=== PATIENT | male | born 1980 | race Caucasian/White ===

== ENCOUNTER 2017-07-05 16:29 | Emergency (ER) | payer OTHER ==
[2017-07-05] MEDS ORDERED: Lactated Ringers 1,000 ML IV ONE ×4 (17:04→17:48)
[2017-07-05] MEDS ORDERED: Phenergan 25 MG INJ IM ONE (17:16)
[2017-07-05 17:27] LABS: VBG BASE EXCESS -3.7 (-2.0-2.0); VBG CARBOXYHEMOGLOBIN 3.4 % T HGB (0.0-6.9); VBG HCO3- 21.5 meq/L (22-28); VBG HEMOGLOBIN 17.2; VBG O2 SATURATION 84.7 (95-100); VBG POTASSIUM 2.9 (3.5-5.1); VBG pH 7.35 (7.32-7.42)
[2017-07-05 17:29] LABS: BASOPHIL % 0.2 % (0.0-0.4); Basophil (Absolute #) 0.02 (0-0.4); Eosinophil % 2.2 % (0.00-5.0); Eosinophil (Absolute #) 0.22 (0-0.5); Granulocyte Absolute (ANC) 7.37 (1.4-6.9); Granulocytes % 73.1 % (36.0-66.0); Hemoglobin 17.6 gm/dl (12.5-18.0); Lymphocytes % 15.9 % (24.0-44.0); Mean Cell Volume 86.5 fl (78-100); Mean Corpuscular Hemoglobin 31.7 pg (26-32); Mean Corpuscular Hgb Concent. 36.7 g/dl (32-36); Mean Platelet Volume 10.1 fl (6-9.5); Monocyte (Absolute #) 0.87 (0.0-1.3); Monocytes % 8.6 % (0.0-12.0); Platelet Count 269 K/mm3 (150-450); Red Blood Count 5.55 M/mm3 (4.1-5.6); Red Cell Distribution Width 12.5 % (11.5-14.0); White Blood Count 10.1 K/mm3 (4.0-10.5)
[2017-07-05] MEDS ORDERED: Phenergan 25 MG INJ ONE (17:29)
[2017-07-05] MEDS ORDERED: POTASSIUM CHLORIDE 20 mEq IN WATER 100ML 100 ML IV ONE ×2 (17:44→17:48)
--- NOTE | 2017-07-05 17:44 | ERPHSYRPT ---
- History of Present Illness Time Seen by Provider: 07/05/17 17:09 Historian: patient Patient Subjective Stated Complaint: pt reports eating a poisonous mushroom a week ago-2 days later began having diarrhea-states he has had explosive violent diarrhea x 1 week-denies vomiting but reports episodes of nausea-reports pain to mid abd Triage Nursing Assessment: pt pink warm and [id number]-fluz easy and nonlabored upon arrival-bowel sounds hyperaactive-abd soft and nontender to palp-reports increased gas Physician History: CC: diarrhea Hx: 37 y/o patient with diarrhea for 5 days, copious, nonbloody up to 14 times a day. He has decreased urination. He states he ate a mushroom found in town 7 days ago and looked it up and thinks it is a poisonous false son mushroom. No one else is ill. No vomiting. No fever or chills. Abdominal cramping. No prior abd surgeries. Diarrhea is severe. Timing/Duration: day(s) (5) Abdominal Pain Onset Location: generalized abdomen Allergies/Adverse Reactions: Penicillins Allergy (Verified 07/05/17 16:42) Home Medications: No Reportable Medications [No Reported Medications] 07/05/17 [History] Hx Tetanus, Diphtheria Vaccination/Date Given: No Hx Influenza Vaccination/Date Given: No Hx Pneumococcal Vaccination/Date Given: No Immunizations Up to Date: Yes - Review of Systems Constitutional: Fatigue, Malaise, Weakness, No Fever, No Chills Eyes: No Symptoms, No Vision Changes Ears, Nose, & Throat: No Symptoms Respiratory: No Cough, No Dyspnea Cardiac: No Chest Pain, No Syncope Abdominal/Gastrointestinal: Abdominal Pain (cramping), Nausea, Diarrhea (copious ), No Vomiting Genitourinary Symptoms: No Dysuria, No Hematuria Skin: No Rash Neurological: No Focal Weakness, No Headache All Other Systems: Reviewed and Negative - Past Medical History Pertinent Past Medical History: Yes Neurological History: No Pertinent History ENT History: No Pertinent History Cardiac History: No Pertinent History Respiratory History: No Pertinent History Endocrine Medical History: No Pertinent History Musculoskeletal History: No Pertinent History GI Medical History: No Pertinent History History: No Pertinent History Psycho-Social History: Anxiety, Depression Male Reproductive Disorders: No Pertinent History - Past Surgical History Past Surgical History: No - Social History Smoking Status: Current every day smoker How long have you smoked: 15 Exposure to second hand smoke: Yes Drug Use: marijuana, methamphetamines, narcotics Patient Lives Alone: No - Nursing Vital Signs Nursing Vital Signs: Initial Vital Signs Temperature 97.6 F 07/05/17 16:34 Pulse Rate 75 07/05/17 16:34 Respiratory Rate 18 07/05/17 16:34 Blood Pressure 147/99 07/05/17 16:34 O2 Sat by Pulse Oximetry 97 07/05/17 16:34 Pain Scale Pain Intensity 7 - Physical Exam General Appearance: alert, thin Eye Exam: PERRL/EOMI Ears, Nose, Throat Exam: dry mucous membranes Neck Exam: normal inspection, non-tender, supple Respiratory Exam: normal breath sounds Cardiovascular Exam: regular rate/rhythm, No murmur, No tachycardia Gastrointestinal/Abdomen Exam: soft, No tenderness, No distention, No mass, No guarding Male Genitalia Exam: normal genitalia, No testicular tenderness Back Exam: normal inspection, normal range of motion Extremity Exam: normal inspection, normal range of motion Neurologic Exam: alert, oriented x 3, cooperative, 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 QTc normal 431.) - Radiology Exams AAS X-ray Interpretation: Reviewed by me (nonspecific bowel gas pattern, no obstrution) Ordered Tests: Active Orders 24 hr Category Date Time Status Clean Catch Urine Specimen STAT Care 07/05/17 17:16 Active EKG-ER Only STAT Care 07/05/17 17:16 Active IV Insertion STAT Care 07/05/17 17:16 Active OBSTR/ACUTE ABDOMEN SERIES Stat Exams 07/05/17 17:17 Ordered CBC W DIFF Stat Lab 07/05/17 17:00 Completed CMP Stat Lab 07/05/17 17:00 Completed LIPASE Stat Lab 07/05/17 17:00 Completed Lactic Acid Stat Lab 07/05/17 17:16 Results MAGNESIUM Stat Lab 07/05/17 17:00 Completed PROTIME WITH INR Stat Lab 07/05/17 17:00 Received PTT Stat Lab 07/05/17 17:00 Received UA W/RFX UR CULTURE Stat Lab 07/05/17 17:55 Completed Urine Triage Profile Stat Lab 07/05/17 17:55 Completed VENOUS BLOOD GAS Stat Lab 07/05/17 17:17 Completed Medication Summary Generic Name Dose Route Start Last Admin Trade Name Freq PRN Reason Stop Dose Admin Lactated Ringer's 1,000 mls @ 999 mls/hr 07/05/17 17:45 07/05/17 17:53 Lactated Ringers IV 07/05/17 18:45 999 mls/hr .Q1H1M ONE Administration Magnesium Sulfate/Dextrose 100 mls @ 100 mls/hr 07/05/17 17:45 07/05/17 17:52 Magnesium 1 Gm / 100 Ml D5w IV 07/05/17 19:44 100 mls/hr Q1H JANETTE Administration Discontinued Medications Generic Name Dose Route Start Last Admin Trade Name Freq PRN Reason Stop Dose Admin Lactated Ringer's 1,000 mls @ 999 mls/hr 07/05/17 17:07 07/05/17 17:08 Lactated Ringers IV 07/05/17 18:07 999 mls/hr .Q1H1M ONE Administration Lactated Ringer's Confirm 07/05/17 17:04 Lactated Ringers Administered 07/05/17 17:05 Dose 1,000 mls @ ud IV .STK-MED ONE Potassium Chloride 100 mls @ 50 mls/hr 07/05/17 17:44 07/05/17 17:52 Potassium Chloride 20 Meq In Water 100ml IV 07/05/17 19:43 50 mls/hr STAT ONE Administration Lactated Ringer's Confirm 07/05/17 17:48 Lactated Ringers Administered 07/05/17 17:49 Dose 1,000 mls @ ud IV .STK-MED ONE Potassium Chloride Confirm 07/05/17 17:48 Potassium Chloride 20 Meq In Water 100ml Administered 07/05/17 17:49 Dose 100 mls @ ud IV .STK-MED ONE Potassium Bicarbonate 50 meq 07/05/17 18:08 07/05/17 18:16 K-Lyte 25 Meq PO 07/05/17 18:09 50 meq STAT ONE Administration Potassium Bicarbonate Confirm 07/05/17 18:10 K-Lyte 25 Meq Administered 07/05/17 18:11 Dose 50 meq .ROUTE .STK-MED ONE Promethazine HCl 12.5 mg 07/05/17 17:16 07/05/17 17:33 Phenergan 25 Mg Inj IM 07/05/17 17:17 12.5 mg STAT ONE Administration Promethazine HCl Confirm 07/05/17 17:29 Phenergan 25 Mg Inj Administered 07/05/17 17:30 Dose 25 mg .ROUTE .STK-MED ONE Lab/Rad Data: Laboratory Result Diagrams 07/05/17 17:00 07/05/17 17:00 Laboratory Results 07/05/17 07/05/17 07/05/17 Range/Units 17:55 17:55 17:17 WBC (4.0-10.5) K/mm3 RBC (4.1-5.6) M/mm3 Hgb (12.5-18.0) gm/dl Hct (42-50) % MCV (78-100) fl MCH (26-32) pg MCHC (32-36) g/dl RDW (11.5-14.0) % Plt Count (150-450) K/mm3 MPV (6-9.5) fl Gran % (36.0-66.0) % Eos # (Auto) (0-0.5) Absolute Lymphs (auto) (1.0-4.6) Absolute Monos (auto) (0.0-1.3) Lymphocytes % (24.0-44.0) % Monocytes % (0.0-12.0) % Eosinophils % (0.00-5.0) % Basophils % (0.0-0.4) % Absolute Granulocytes (1.4-6.9) Basophils # (0-0.4) pO2/FiO2 Ratio 21.0 % VBG pH 7.35 (7.32-7.42) VBG pCO2 at Pat Temp 39 L (42-55) mm/Hg VBG pO2 at Pat Temp 43 H (25-40) mm/Hg VBG HCO3 21.5 L (22-28) meq/L VBG O2 Sat (Rodney) 84.7 L (95-100) VBG Base Excess -3.7 L (-2.0-2.0) VBG Hemoglobin 17.2 VBG Carboxyhemoglobin 3.4 (0.0-6.9) % T HGB POC Potassium 2.9 L* (3.5-5.1) Sodium (137-145) mmol/L Potassium (3.5-5.1) mmol/L Chloride (98-107) mmol/L Carbon Dioxide (22-30) mmol/L Anion Gap (5-15) MEQ/L BUN (9-20) mg/dL Creatinine (0.66-1.25) mg/dL Estimated GFR ML/MIN Glucose (74-106) mg/dL Lactic Acid (0.4-2.0) Calcium (8.4-10.2) mg/dL Magnesium (1.6-2.3) mg/dL Total Bilirubin (0.2-1.3) mg/dL AST (17-59) U/L ALT (0-50) U/L Alkaline Phosphatase (38-126) U/L Serum Total Protein (6.3-8.2) g/dL Albumin (3.5-5.0) g/dL Lipase (23-300) U/L Ur Collection Type CLEAN CATCH Urine Color YELLOW (YELLOW) Urine Appearance CLEAR (CLEAR) Urine pH 6.0 (5-6) Ur Specific [place] 1.010 (1.005-1.025) Urine Protein NEGATIVE (Negative) Urine Ketones NEGATIVE (NEGATIVE) Urine Blood NEGATIVE (0-5) Pavel/ul Urine Nitrite NEGATIVE (NEGATIVE) Urine Bilirubin NEGATIVE (NEGATIVE) Urine Urobilinogen NORMAL (0-1) mg/dL Ur Leukocyte Esterase NEGATIVE (NEGATIVE) Urine Culture Reflexed NO (NO) Urine Glucose NEGATIVE (NEGATIVE) mg/dL Urine Opiates Level NEGATIVE (NEGATIVE) Ur Methadone NEGATIVE (NEGATIVE) Urine Barbiturates NEGATIVE (NEGATIVE) Ur Phencyclidine (PCP) NEGATIVE (NEGATIVE) Urine Amphetamine POSITIVE (NEGATIVE) U Benzodiazepine Level NEGATIVE (NEGATIVE) Urine Cocaine NEGATIVE (NEGATIVE) Urine Marijuana (THC) POSITIVE (NEGATIVE) Specimen Received 07/05/17 [id number] 07/05/17 07/05/17 07/05/17 Range/Units 17:16 17:00 17:00 WBC (4.0-10.5) K/mm3 RBC (4.1-5.6) M/mm3 Hgb (12.5-18.0) gm/dl Hct (42-50) % MCV (78-100) fl MCH (26-32) pg MCHC (32-36) g/dl RDW (11.5-14.0) % Plt Count (150-450) K/mm3 MPV (6-9.5) fl Gran % (36.0-66.0) % Eos # (Auto) (0-0.5) Absolute Lymphs (auto) (1.0-4.6) Absolute Monos (auto) (0.0-1.3) Lymphocytes % (24.0-44.0) % Monocytes % (0.0-12.0) % Eosinophils % (0.00-5.0) % Basophils % (0.0-0.4) % Absolute Granulocytes (1.4-6.9) Basophils # (0-0.4) pO2/FiO2 Ratio % VBG pH (7.32-7.42) VBG pCO2 at Pat Temp (42-55) mm/Hg VBG pO2 at Pat Temp (25-40) mm/Hg VBG HCO3 (22-28) meq/L VBG O2 Sat (Rodney) (95-100) VBG Base Excess (-2.0-2.0) VBG Hemoglobin VBG Carboxyhemoglobin (0.0-6.9) % T HGB POC Potassium (3.5-5.1) Sodium 135 L (137-145) mmol/L Potassium 3.0 L (3.5-5.1) mmol/L Chloride 100 (98-107) mmol/L Carbon Dioxide 19 L (22-30) mmol/L Anion Gap 18.3 H (5-15) MEQ/L BUN 17 (9-20) mg/dL Creatinine 0.78 (0.66-1.25) mg/dL Estimated GFR > 60.0 ML/MIN Glucose 119 H (74-106) mg/dL Lactic Acid 2.0 (0.4-2.0) Calcium 9.4 (8.4-10.2) mg/dL Magnesium 1.8 (1.6-2.3) mg/dL Total Bilirubin 1.00 (0.2-1.3) mg/dL AST 23 (17-59) U/L ALT 39 (0-50) U/L Alkaline Phosphatase 56 (38-126) U/L Serum Total Protein 7.9 (6.3-8.2) g/dL Albumin 4.6 (3.5-5.0) g/dL Lipase 44 (23-300) U/L Ur Collection Type Urine Color (YELLOW) Urine Appearance (CLEAR) Urine pH (5-6) Ur Specific [place] (1.005-1.025) Urine Protein (Negative) Urine Ketones (NEGATIVE) Urine Blood (0-5) Pavel/ul Urine Nitrite (NEGATIVE) Urine Bilirubin (NEGATIVE) Urine Urobilinogen (0-1) mg/dL Ur Leukocyte Esterase (NEGATIVE) Urine Culture Reflexed (NO) Urine Glucose (NEGATIVE) mg/dL Urine Opiates Level (NEGATIVE) Ur Methadone (NEGATIVE) Urine Barbiturates (NEGATIVE) Ur Phencyclidine (PCP) (NEGATIVE) Urine Amphetamine (NEGATIVE) U Benzodiazepine Level (NEGATIVE) Urine Cocaine (NEGATIVE) Urine Marijuana (THC) (NEGATIVE) Specimen Received 07/05/17 Range/Units 17:00 WBC 10.1 (4.0-10.5) K/mm3 RBC 5.55 (4.1-5.6) M/mm3 Hgb 17.6 (12.5-18.0) gm/dl Hct 48.0 (42-50) % MCV 86.5 (78-100) fl MCH 31.7 (26-32) pg MCHC 36.7 H (32-36) g/dl RDW 12.5 (11.5-14.0) % Plt Count 269 (150-450) K/mm3 MPV 10.1 H (6-9.5) fl Gran % 73.1 H (36.0-66.0) % Eos # (Auto) 0.22 (0-0.5) Absolute Lymphs (auto) 1.60 (1.0-4.6) Absolute Monos (auto) 0.87 (0.0-1.3) Lymphocytes % 15.9 L (24.0-44.0) % Monocytes % 8.6 (0.0-12.0) % Eosinophils % 2.2 (0.00-5.0) % Basophils % 0.2 (0.0-0.4) % Absolute Granulocytes 7.37 H (1.4-6.9) Basophils # 0.02 (0-0.4) pO2/FiO2 Ratio % VBG pH (7.32-7.42) VBG pCO2 at Pat Temp (42-55) mm/Hg VBG pO2 at Pat Temp (25-40) mm/Hg VBG HCO3 (22-28) meq/L VBG O2 Sat (Rodney) (95-100) VBG Base Excess (-2.0-2.0) VBG Hemoglobin VBG Carboxyhemoglobin (0.0-6.9) % T HGB POC Potassium (3.5-5.1) Sodium (137-145) mmol/L Potassium (3.5-5.1) mmol/L Chloride (98-107) mmol/L Carbon Dioxide (22-30) mmol/L Anion Gap (5-15) MEQ/L BUN (9-20) mg/dL Creatinine (0.66-1.25) mg/dL Estimated GFR ML/MIN Glucose (74-106) mg/dL Lactic Acid (0.4-2.0) Calcium (8.4-10.2) mg/dL Magnesium (1.6-2.3) mg/dL Total Bilirubin (0.2-1.3) mg/dL AST (17-59) U/L ALT (0-50) U/L Alkaline Phosphatase (38-126) U/L Serum Total Protein (6.3-8.2) g/dL Albumin (3.5-5.0) g/dL Lipase (23-300) U/L Ur Collection Type Urine Color (YELLOW) Urine Appearance (CLEAR) Urine pH (5-6) Ur Specific [place] (1.005-1.025) Urine Protein (Negative) Urine Ketones (NEGATIVE) Urine Blood (0-5) Pavel/ul Urine Nitrite (NEGATIVE) Urine Bilirubin (NEGATIVE) Urine Urobilinogen (0-1) mg/dL Ur Leukocyte Esterase (NEGATIVE) Urine Culture Reflexed (NO) Urine Glucose (NEGATIVE) mg/dL Urine Opiates Level (NEGATIVE) Ur Methadone (NEGATIVE) Urine Barbiturates (NEGATIVE) Ur Phencyclidine (PCP) (NEGATIVE) Urine Amphetamine (NEGATIVE) U Benzodiazepine Level (NEGATIVE) Urine Cocaine (NEGATIVE) Urine Marijuana (THC) (NEGATIVE) Specimen Received - Progress Progress Note: 07/05/17 17:58 He urinated. 34 ml post void residual on bedside sono. 07/05/17 18:32 2L LR given IV. He took po potassium. IV mag given. Phenergan given. Called Isadora at [facility] and liver and renal function wnl so no further work up. Counseled pt/family regarding: lab results, diagnosis, need for follow-up, rad results - Departure Time of Disposition: 18:33 Departure Disposition: Home Clinical Impression: Diarrhea Qualifiers: Diarrhea type: unspecified type Qualified Code(s): R19.7 - Diarrhea, unspecified Condition: Fair Critical Care Time: No Referrals: CHANTELLE HERNDON [Primary Care Provider] - Instructions: Diarrhea and Traveler's Diarrhea, Adult (DC) Additional Instructions: Push oral fluids. Follow up with Dr Herndon in 1-2 days. Return for problems or concerns. No driving today. May use OTC immodium for diarrhea.
[2017-07-05 17:47] LABS: ALBUMIN 4.6 g/dL (3.5-5.0); ALKALINE PHOSPHATASE 56 U/L (38-126); ANION GAP 18.3 MEQ/L (5-15); BLOOD UREA NITROGEN 17 mg/dL (9-20); CHLORIDE 100 mmol/L (98-107); Calcium 9.4 mg/dL (8.4-10.2); Carbon Dioxide 19 mmol/L (22-30); Creatinine 1 0.78 mg/dL (0.66-1.25); Glucose 119 mg/dL (74-106); LIPASE 44 U/L (23-300); SGOT/AST 23 U/L (17-59); SGPT/ALT 39 U/L (0-50); SODIUM 135 mmol/L (137-145); Total Protein 7.9 g/dL (6.3-8.2)
[2017-07-05] MEDS ORDERED: Magnesium 1 Gm / 100 Ml D5W*** 200 ML IV ONE (17:48)
[2017-07-05] MEDS: Magnesium 1 Gm / 100 Ml D5W*** 100 ML IV SCH ×2 (17:52→18:40)
[2017-07-05 18:06] LABS: Appearance CLEAR (CLEAR); Bilirubin NEGATIVE (NEGATIVE); Blood NEGATIVE Ery/ul (0-5); Glucose NEGATIVE (NEGATIVE); Ketones NEGATIVE (NEGATIVE); Leukocyte Esterase NEGATIVE (NEGATIVE); Nitrite NEGATIVE (NEGATIVE); Protein,Urine Dip NEGATIVE (Negative); Urobilinogen NORMAL mg/dL (0-1)
[2017-07-05] MEDS ORDERED: K-LYTE 25 MEQ PO ONE (18:08)
[2017-07-05] MEDS ORDERED: K-LYTE 25 MEQ ONE (18:10)
[2017-07-05 18:19] LABS: Amphetamine,Urine POSITIVE (NEGATIVE); Barbiturate,Urine NEGATIVE (NEGATIVE); Benzodiazepine,Urine NEGATIVE (NEGATIVE); Cocaine,Urine NEGATIVE (NEGATIVE); Methadone,Urine NEGATIVE (NEGATIVE); Opiate,Urine NEGATIVE (NEGATIVE); PCP,Urine NEGATIVE (NEGATIVE); THC,Urine POSITIVE (NEGATIVE)
[2017-07-05 18:31] LABS: INR 1.13 (0.8-3.0)
[2017-07-05 18:34] LABS: PTT 33.8 SECONDS (24.1-36.1)
--- NOTE | 2017-07-05 19:27 | XRAY ---
Indication: Abdominal pain and diarrhea. Comparison: None 2 views of the abdomen demonstrates mild air distended small and large bowel loops with synchronous fluid leveling, ileus versus enterocolitis. No focal bowel dilatation, obstruction, or free air. Solid organs and osseous structures unremarkable. Single PA chest demonstrates normal heart, lungs, and bony thorax. Impression: Mild distended small/large bowel loops with synchronous fluid leveling, ileus versus enterocolitis. Normal 1 view chest.
[2017-07-05 19:36] VITALS: BP 131/91; PULSE 72; O2SAT 100
== END 2017-07-05 20:20 | disposition home or self-care (01) ==
LOC: ED 16:29
DX: R19.7 Diarrhea, unspecified (principal)
CPT/HCPCS: 36000; 36415; 74022; 80053; 80307; 81002; 82805; 83605; 83690; 83735; 85025; 85610; 85730; 93005; 96360; 96361; 96365; 96367; 96372; 99284; J2550; J3475; J3480; A9270-GY

== ENCOUNTER 2018-07-13 17:51 | Emergency (ER) | payer MEDICAID, OTHER ==
[2018-07-13 19:09] VITALS: O2SAT 100
[2018-07-13 20:04] LABS: BASOPHIL % 0.7 % (0.0-0.4); Basophil (Absolute #) 0.04 (0-0.4); Eosinophil (Absolute #) 0.17 (0-0.5); Granulocyte Absolute (ANC) 3.33 (1.4-6.9); Granulocytes % 58.4 % (36.0-66.0); Hematocrit 46.7 % (42-50); Hemoglobin 15.6 gm/dl (12.5-18.0); Lymphocyte (Absolute #) 1.66 (1.0-4.6); Lymphocytes % 29.1 % (24.0-44.0); Mean Cell Volume 93.4 fl (78-100); Mean Corpuscular Hemoglobin 31.2 pg (26-32); Mean Corpuscular Hgb Concent. 33.4 g/dl (32-36); Mean Platelet Volume 9.6 fl (6-9.5); Monocytes % 8.8 % (0.0-12.0); Platelet Count 207 K/mm3 (150-450); Red Cell Distribution Width 12.9 % (11.5-14.0); White Blood Count 5.7 K/mm3 (4.0-10.5)
[2018-07-13 20:15] LABS: ALBUMIN 4.3 g/dL (3.5-5.0); ALKALINE PHOSPHATASE 50 U/L (38-126); ANION GAP 13.7 MEQ/L (5-15); BLOOD UREA NITROGEN 7 mg/dL (9-20); CHLORIDE 100 mmol/L (98-107); Calcium 9.7 mg/dL (8.4-10.2); Carbon Dioxide 31 mmol/L (22-30); Creatinine 1 0.71 mg/dL (0.66-1.25); Glucose 91 mg/dL (74-106); Potassium 4.4 mmol/L (3.5-5.1); SGPT/ALT 42 U/L (0-50); SODIUM 140 mmol/L (137-145); Total Protein 7.7 g/dL (6.3-8.2)
[2018-07-13 20:18] LABS: Appearance CLEAR (CLEAR); Bilirubin NEGATIVE (NEGATIVE); Blood NEGATIVE Ery/ul (0-5); Glucose NEGATIVE (NEGATIVE); Ketones NEGATIVE (NEGATIVE); Leukocyte Esterase NEGATIVE (NEGATIVE); Nitrite NEGATIVE (NEGATIVE); Protein,Urine Dip NEGATIVE (Negative); Specific Gravity 1.002 (1.005-1.025); Urobilinogen NEGATIVE mg/dL (0-1)
[2018-07-13 20:25] LABS: ACETAMINOPHEN < 10 ug/ml (10-30); ETHYL ALCOHOL < 10 mg/dL (0-10); SALICYLATE < 1.0 mg/dL (2-20)
[2018-07-13 20:31] LABS: Amphetamine,Urine NEGATIVE (NEGATIVE); Barbiturate,Urine NEGATIVE (NEGATIVE); Benzodiazepine,Urine NEGATIVE (NEGATIVE); Cocaine,Urine NEGATIVE (NEGATIVE); Methadone,Urine NEGATIVE (NEGATIVE); Opiate,Urine POSITIVE (NEGATIVE); PCP,Urine NEGATIVE (NEGATIVE); THC,Urine NEGATIVE (NEGATIVE)
--- NOTE | 2018-07-13 20:57 | ERPHSYRPT ---
- History of Present Illness Time Seen by Provider: 07/13/18 19:20 Patient Subjective Stated Complaint: STATES HE FEELS ALONE. NO FRIENDS. IS NOT ALLOWED TO VISIT HIS MOTHER D/T RESTRAINING ORDER. NO WEHERE TO LIVE. PT STATES THOUGHTS OF HARMING SELF BY CUTTING. HAS CUT 2011 AND 2013. [facility] SENT HIM HERE D/T UNABLE TO BEING ADMITTED TO [facility] THROUGH THEM AT THIS TIME. STATES HE FOUND HIS FATHER WHEN HE WAS IN HIGH SCHOOL, HAD A COUSIN COMMIT SUICIDE RECENTLY AND ANOTHER FAMILY MEMBER LAST MONTH. Triage Nursing Assessment: PT ALERT AND ORIENTED. FLAT AFFECT. SCARRING NOTED TO RIGHT INNER FOREARM. SKIN PINK, WARM, DRY. Physician History: 38 y/o white male, with h/o suicidal attempts in past, presents with several day h/o suicidal thoughts and he has a plan. he is planning on cutting himself. he has done this in the past. he feels alone. everyone important to him has and his mother has a restraining order against him. he states if he doesnt get help he will commit suicide. he is not on any medications. illicit drug use includes marijuana and methamphetamines. Timing/Duration: day(s) (a few) Severity of Symptoms-Max: moderate Severity of Symptoms-Current: moderate Context related to: significant other, living circumstances, other (loneliness) Associated Symptoms: depressed, suicidal ideation, No hallucinating, No insomnia Previous symptoms: same symptoms as today Allergies/Adverse Reactions: Penicillins Allergy (Verified 07/05/17 16:42) Home Medications: No Reportable Medications [No Reported Medications] 07/05/17 [History] Hx Tetanus, Diphtheria Vaccination/Date Given: Yes Hx Influenza Vaccination/Date Given: No Hx Pneumococcal Vaccination/Date Given: No - Past Medical History Pertinent Past Medical History: Yes Neurological History: No Pertinent History ENT History: No Pertinent History Cardiac History: No Pertinent History Respiratory History: No Pertinent History Endocrine Medical History: No Pertinent History Musculoskeletal History: No Pertinent History GI Medical History: No Pertinent History History: No Pertinent History Psycho-Social History: Anxiety, Depression Male Reproductive Disorders: No Pertinent History - Past Surgical History Past Surgical History: No Neuro Surgical History: No Pertinent History Cardiac: No Pertinent History Respiratory: No Pertinent History Gastrointestinal: No Pertinent History Genitourinary: No Pertinent History Musculoskeletal: No Pertinent History Male Surgical History: No Pertinent History - Social History Smoking Status: Current every day smoker How long have you smoked: 15 Exposure to second hand smoke: Yes Drug Use: marijuana, methamphetamines Patient Lives Alone: Yes (STAES HOMELESS) - Review of Systems Constitutional: No Symptoms Eyes: No Symptoms Ears, Nose, & Throat: No Symptoms Respiratory: No Symptoms Cardiac: No Symptoms Abdominal/Gastrointestinal: No Symptoms Genitourinary Symptoms: No Symptoms Musculoskeletal: No Symptoms Skin: No Symptoms Neurological: No Symptoms Psychological: Drug Abuse, Depression, Suicidal Ideations Endocrine: No Symptoms Hematologic/Lymphatic: No Symptoms Immunological/Allergic: No Symptoms All Other Systems: Reviewed and Negative - Nursing Vital Signs Nursing Vital Signs: Initial Vital Signs Pulse Rate 79 07/13/18 19:08 Respiratory Rate 18 07/13/18 19:08 Blood Pressure 125/92 07/13/18 19:08 O2 Sat by Pulse Oximetry 100 07/13/18 19:08 Pain Scale Pain Intensity 0 - Physical Exam General Appearance: mild distress, alert, anxiety Eyes, Ears, Nose, Throat Exam: normal ENT inspection, moist mucous membranes Neck Exam: normal inspection, non-tender, supple, full range of motion Respiratory Exam: normal breath sounds, lungs clear, airway intact, No chest tenderness, No respiratory distress, No accessory muscle use, No rhonchi, No wheezing, No stridor Cardiovascular Exam: regular rate/rhythm, normal heart sounds, normal peripheral pulses Gastrointestinal/Abdominal Exam: soft, normal bowel sounds, No tenderness, No guarding, No rebound Extremities Exam: No normal inspection, No normal range of motion, No evidence of injury Neurological Exam: alert, normal mood/affect, calm, qa consultant II-XII nml as tested, oriented x 3 Appearance: appropriate appearance, appropriate insight Behavior/Eye Contact/Speech: alert & cooperative, cooperative, good eye contact , normal speech Thoughts/Hallucinations: normal thought pattern, No no apparent hallucination, No auditory hallucinations, No tactile hallucinations, No visual hallucinations Skin Exam: normal color, warm, dry SpO2 Interpretation: normal, borderline oxygenation SpO2: 100 O2 Delivery: Room Air - Course Nursing assessment & vital signs reviewed: Yes EKG Interpreted by Me: RATE (70), Sinus Rhythm, NORMAL AXIS, NORMAL INTERVALS, NORMAL QRS, Other (improved over comparison ekg dated 07/05/18) Ordered Tests: Active Orders 24 hr Category Date Time Status Clean Catch Urine Specimen STAT Care 07/13/18 19:27 Active EKG-ER Only STAT Care 07/13/18 19:27 Active IV Insertion STAT Care 07/13/18 19:27 Active Psychiatric Consult STAT Cons 07/13/18 19:27 Active ACETAMINOPHEN Stat Lab 07/13/18 20:03 Completed CBC W DIFF Stat Lab 07/13/18 20:03 Completed CMP Stat Lab 07/13/18 20:03 Completed ETHYL ALCOHOL Stat Lab 07/13/18 20:03 Completed SALICYLATE Stat Lab 07/13/18 20:03 Completed UA W/RFX UR CULTURE Stat Lab 07/13/18 20:12 Completed Urine Triage Profile Stat Lab 07/13/18 20:12 Completed Lab/Rad Data: Laboratory Result Diagrams 07/13/18 20:03 07/13/18 20:03 Laboratory Results 07/13/18 07/13/18 07/13/18 Range/Units 20:12 20:12 20:03 WBC (4.0-10.5) K/mm3 RBC (4.1-5.6) M/mm3 Hgb (12.5-18.0) gm/dl Hct (42-50) % MCV (78-100) fl MCH (26-32) pg MCHC (32-36) g/dl RDW (11.5-14.0) % Plt Count (150-450) K/mm3 MPV (6-9.5) fl Gran % (36.0-66.0) % Eos # (Auto) (0-0.5) Absolute Lymphs (auto) (1.0-4.6) Absolute Monos (auto) (0.0-1.3) Lymphocytes % (24.0-44.0) % Monocytes % (0.0-12.0) % Eosinophils % (0.00-5.0) % Basophils % (0.0-0.4) % Absolute Granulocytes (1.4-6.9) Basophils # (0-0.4) Sodium 140 (137-145) mmol/L Potassium 4.4 (3.5-5.1) mmol/L Chloride 100 (98-107) mmol/L Carbon Dioxide 31 H (22-30) mmol/L Anion Gap 13.7 (5-15) MEQ/L BUN 7 L (9-20) mg/dL Creatinine 0.71 (0.66-1.25) mg/dL Estimated GFR > 60.0 ML/MIN Glucose 91 (74-106) mg/dL Calcium 9.7 (8.4-10.2) mg/dL Total Bilirubin 0.60 (0.2-1.3) mg/dL AST 41 (17-59) U/L ALT 42 (0-50) U/L Alkaline Phosphatase 50 (38-126) U/L Serum Total Protein 7.7 (6.3-8.2) g/dL Albumin 4.3 (3.5-5.0) g/dL Urine Color STRAW (YELLOW) Urine Appearance CLEAR (CLEAR) Urine pH 6.0 (5-6) Ur Specific [place] 1.002 (1.005-1.025) Urine Protein NEGATIVE (Negative) Urine Ketones NEGATIVE (NEGATIVE) Urine Blood NEGATIVE (0-5) Pavel/ul Urine Nitrite NEGATIVE (NEGATIVE) Urine Bilirubin NEGATIVE (NEGATIVE) Urine Urobilinogen NEGATIVE (0-1) mg/dL Ur Leukocyte Esterase NEGATIVE (NEGATIVE) Urine WBC (Auto) NONE (0-5) /HPF Urine RBC (Auto) NONE (0-2) /HPF U Epithel Cells (Auto) NONE (FEW) /HPF Urine Bacteria (Auto) NONE (NEGATIVE) /HPF Urine Culture Reflexed NO (NO) Urine Glucose NEGATIVE (NEGATIVE) mg/dL Salicylates < 1.0 L (2-20) mg/dL Urine Opiates Level POSITIVE (NEGATIVE) Ur Methadone NEGATIVE (NEGATIVE) Acetaminophen < 10 L (10-30) ug/ml Urine Barbiturates NEGATIVE (NEGATIVE) Ur Phencyclidine (PCP) NEGATIVE (NEGATIVE) Urine Amphetamine NEGATIVE (NEGATIVE) U Benzodiazepine Level NEGATIVE (NEGATIVE) Urine Cocaine NEGATIVE (NEGATIVE) Urine Marijuana (THC) NEGATIVE (NEGATIVE) Ethyl Alcohol < 10 (0-10) mg/dL 07/13/18 Range/Units 20:03 WBC 5.7 (4.0-10.5) K/mm3 RBC 5.00 (4.1-5.6) M/mm3 Hgb 15.6 (12.5-18.0) gm/dl Hct 46.7 (42-50) % MCV 93.4 (78-100) fl MCH 31.2 (26-32) pg MCHC 33.4 (32-36) g/dl RDW 12.9 (11.5-14.0) % Plt Count 207 (150-450) K/mm3 MPV 9.6 H (6-9.5) fl Gran % 58.4 (36.0-66.0) % Eos # (Auto) 0.17 (0-0.5) Absolute Lymphs (auto) 1.66 (1.0-4.6) Absolute Monos (auto) 0.50 (0.0-1.3) Lymphocytes % 29.1 (24.0-44.0) % Monocytes % 8.8 (0.0-12.0) % Eosinophils % 3.0 (0.00-5.0) % Basophils % 0.7 (0.0-0.4) % Absolute Granulocytes 3.33 (1.4-6.9) Basophils # 0.04 (0-0.4) Sodium (137-145) mmol/L Potassium (3.5-5.1) mmol/L Chloride (98-107) mmol/L Carbon Dioxide (22-30) mmol/L Anion Gap (5-15) MEQ/L BUN (9-20) mg/dL Creatinine (0.66-1.25) mg/dL Estimated GFR ML/MIN Glucose (74-106) mg/dL Calcium (8.4-10.2) mg/dL Total Bilirubin (0.2-1.3) mg/dL AST (17-59) U/L ALT (0-50) U/L Alkaline Phosphatase (38-126) U/L Serum Total Protein (6.3-8.2) g/dL Albumin (3.5-5.0) g/dL Urine Color (YELLOW) Urine Appearance (CLEAR) Urine pH (5-6) Ur Specific [place] (1.005-1.025) Urine Protein (Negative) Urine Ketones (NEGATIVE) Urine Blood (0-5) Pavel/ul Urine Nitrite (NEGATIVE) Urine Bilirubin (NEGATIVE) Urine Urobilinogen (0-1) mg/dL Ur Leukocyte Esterase (NEGATIVE) Urine WBC (Auto) (0-5) /HPF Urine RBC (Auto) (0-2) /HPF U Epithel Cells (Auto) (FEW) /HPF Urine Bacteria (Auto) (NEGATIVE) /HPF Urine Culture Reflexed (NO) Urine Glucose (NEGATIVE) mg/dL Salicylates (2-20) mg/dL Urine Opiates Level (NEGATIVE) Ur Methadone (NEGATIVE) Acetaminophen (10-30) ug/ml Urine Barbiturates (NEGATIVE) Ur Phencyclidine (PCP) (NEGATIVE) Urine Amphetamine (NEGATIVE) U Benzodiazepine Level (NEGATIVE) Urine Cocaine (NEGATIVE) Urine Marijuana (THC) (NEGATIVE) Ethyl Alcohol (0-10) mg/dL - Progress Progress: unchanged Progress Note: 07/13/18 23:01 pt accepted at [facility] health unit. pt to go to ED. doctor earl accepts. 07/13/18 23:04 Counseled pt/family regarding: lab results, diagnosis, need for follow-up, rad results - Departure Departure Disposition: Transfer Clinical Impression: Suicidal ideation Condition: Stable Critical Care Time: No Referrals: CHANTELLE BLAS [Primary Care Provider] -
[2018-07-13 21:11] LABS: SGOT/AST 41 U/L (17-59)
[2018-07-13 22:44] VITALS: PULSE 80
[2018-07-13 23:15] VITALS: BP 117/76
== END 2018-07-14 | disposition short-term general hospital (02) ==
LOC: ED 17:51
DX: R45.851 Suicidal ideations (principal)
CPT/HCPCS: 36000; 36415; 80053; 80307; 81001; 85025; 93005; 99284; G0481; G0480

== ENCOUNTER 2018-08-14 15:59 | Emergency (ER) | payer MEDICAID ==
[2018-08-14 16:12] VITALS: O2SAT 98
--- NOTE | 2018-08-14 16:31 | ERPHSYRPT ---
- History of Present Illness Time Seen by Provider: 08/14/18 16:27 Source: patient Exam Limitations: no limitations Patient Subjective Stated Complaint: "I have had a toothache in my left upper jaw for past couple weeks" Triage Nursing Assessment: Aaox3, color good, walked in, afebrile, resp easy, facial swelling to left face/jaw noted. States took gabapentin yesterday given to him from friend yesterday with no pain relief. States has not seen dentist. Physician History: 38-year-old male without any significant past medical history came to the emergency room with complaining of left side jaw swelling. Patient states that he has a left upper premolar tooth abscess for few weeks, but has not been able to see the dentist. Today, her swelling on her left side of the jaw as well as on the left side of the face got worse and with extreme pain so he came to the emergency room. Timing/Duration: day(s) Severity: moderate Associated Symptoms: denies symptoms Allergies/Adverse Reactions: Penicillins Allergy (Verified 07/05/17 16:42) Hx Tetanus, Diphtheria Vaccination/Date Given: Yes Hx Influenza Vaccination/Date Given: No Hx Pneumococcal Vaccination/Date Given: No Immunizations Up to Date: No - Review of Systems Constitutional: No Symptoms Ears, Nose, & Throat: Loose Teeth Respiratory: No Symptoms Cardiac: No Symptoms Abdominal/Gastrointestinal: No Symptoms Genitourinary Symptoms: No Symptoms Musculoskeletal: No Symptoms - Past Medical History Pertinent Past Medical History: Yes Neurological History: No Pertinent History ENT History: No Pertinent History Cardiac History: No Pertinent History Respiratory History: No Pertinent History Endocrine Medical History: No Pertinent History Musculoskeletal History: No Pertinent History GI Medical History: No Pertinent History History: No Pertinent History Psycho-Social History: Anxiety, Depression Male Reproductive Disorders: No Pertinent History - Past Surgical History Past Surgical History: No Neuro Surgical History: No Pertinent History Cardiac: No Pertinent History Respiratory: No Pertinent History Gastrointestinal: No Pertinent History Genitourinary: No Pertinent History Musculoskeletal: No Pertinent History Male Surgical History: No Pertinent History - Social History Smoking Status: Current every day smoker How long have you smoked: 20 Exposure to second hand smoke: Yes Drug Use: marijuana, methamphetamines Patient Lives Alone: Yes ([employer]OM[employer]) - Nursing Vital Signs Nursing Vital Signs: Initial Vital Signs Temperature 98.4 F 08/14/18 16:05 Pulse Rate 82 08/14/18 16:05 Respiratory Rate 20 08/14/18 16:05 Blood Pressure 150/96 08/14/18 16:05 O2 Sat by Pulse Oximetry 98 08/14/18 16:05 Pain Scale Pain Intensity 10 - Physical Exam General Appearance: no apparent distress Eye Exam: PERRL/EOMI Ears, Nose, Throat Exam: moist mucous membranes, other (left side fascial tenderness) SpO2: 98 - Course Nursing assessment & vital signs reviewed: Yes Ordered Tests: Medication Summary Discontinued Medications Generic Name Dose Route Start Last Admin Trade Name Tha PRN Reason Stop Dose Admin Ceftriaxone Sodium 1,000 mg 08/14/18 16:26 Rocephin 1000 Mg Inj IM 08/14/18 16:27 STAT ONE Ketorolac Tromethamine 60 mg 08/14/18 16:26 Toradol 30 Mg Injection IM 08/14/18 16:27 STAT ONE - Progress Progress: improved, pain not gone completely Counseled pt/family regarding: diagnosis, need for follow-up - Departure Departure Disposition: Home Clinical Impression: Abscess, dental Condition: Stable Critical Care Time: No Referrals: CHANTELLE BLAS [Primary Care Provider] - Instructions: Tooth Abscess (DC), Dental Pain (DC) Additional Instructions: Discharge/Care Plan ROBERTO LAY was seen on 08/14/18 in the Emergency Room. The patient was counseled regarding Diagnosis,Lab results, Imaging studies, need for follow up and when to return to the Emergency Room. Prescriptions given: Discharge Note I have spoken with the patient and/or caregivers. I have explained the patient' s condition, diagnosis and treatment plan based on the information available to me at this time. I have answered the patient's and/or caregiver's questions and addressed any concerns. The patient and/or caregivers have as good understanding of the patient's diagnosis, condition and treatment plan as can be expected at this point. The vital signs have been stable. The patient's condition is stable and appropriate for discharge from the emergency department. The patient will pursue further outpatient evaluation with the primary care physician or other designated or consulting physician as outlined in the discharge instructions. The patient and/or caregivers are agreeable to this plan of care and follow-up instructions have been explained in detail. The patient and/or caregivers have received these instruction. The patient/and or caregivers are aware that any significant change in condition or worsening of symptoms should prompt an immediate return to this or the closest emergency department or call 911. Prescriptions: Doxycycline Hyclate 100 mg PO BID #20 tablet Naproxen 500 mg [Naprosyn 500 MG] 500 mg PO BIDAC #30 tablet
[2018-08-14] MEDS ORDERED: TORAdol 30 mg Injection ONE (16:38)
[2018-08-14] MEDS ORDERED: XYLOCAINE 1% HCL 20 ML MDV ONE (16:39)
[2018-08-14] MEDS ORDERED: Rocephin 1000 MG INJ ONE (16:39)
[2018-08-14] MEDS: Rocephin 1000 MG INJ IM ONE (16:42)
[2018-08-14] MEDS: TORAdol 30 mg Injection IM ONE (16:43)
[2018-08-14 16:58] VITALS: BP 146/78; PULSE 77
== END 2018-08-14 16:56 | disposition home or self-care (01) ==
LOC: ED 15:59
DX: K04.7 Periapical abscess without sinus (principal)
CPT/HCPCS: 96372; 99284; J0696; J1885

== ENCOUNTER 2019-11-26 14:07 | Emergency (ER) | payer MEDICAID ==
[2019-11-26 14:46] VITALS: BP 140/88; PULSE 69; O2SAT 98
--- NOTE | 2019-11-26 14:51 | ERPHSYRPT ---
- History of Present Illness Time Seen by Provider: 11/26/19 14:37 Source: patient Exam Limitations: no limitations Patient Subjective Stated Complaint: ear ache Triage Nursing Assessment: pt to ED c/o R ear pain and possible ear infection. pt states pain onset about 1 wk ago, pain only comes with touching of ear. no pain at rest. reports some yellow/green drainage from ear over last week. ear canal red and inflammed upon assessment. no loss hearing or other difficulties Physician History: 39 years old male presented in the ER with chief complaint of right earache for the last 2 to 3 days with some discharge yellow-green color associated with painful movements of external ear. Patient report his and busted couple of red spots yesterday the ear canal. Pain is moderate intensity sharp in nature, aggravated with movements of external ear and partial relief with taking [id number] pain medication. Denies any history of swimming/otitis externa/otitis media in the past. No sore throat. Timing/Duration: gradual onset, days (2) ENT Location: ear (R) Prearrival Treatment: no prearrival treatment Associated Symptoms: ear pain (R), ear drainage, swollen glands, No cough, No fever, No chills, No change in hearing, No facial pain/swelling, No headache, No hearing loss, No jaw pain Allergies/Adverse Reactions: Penicillins Allergy (Verified 11/26/19 14:46) Hx Tetanus, Diphtheria Vaccination/Date Given: Yes Hx Influenza Vaccination/Date Given: Yes Hx Pneumococcal Vaccination/Date Given: No Immunizations Up to Date: Yes Travel Risk - International Travel Have you traveled outside of the country in past 3 weeks: No - Coronavirus Screening Are you exhibiting any of the following symptoms?: No Close contact with a COVID-19 positive Pt in past 14-21 Days: No - Review of Systems Constitutional: No Symptoms Eyes: No Symptoms Ears, Nose, & Throat: Ear Pain, Ear Discharge Respiratory: No Symptoms Cardiac: No Symptoms Abdominal/Gastrointestinal: No Symptoms Musculoskeletal: No Symptoms Skin: No Symptoms Neurological: No Symptoms Psychological: No Symptoms Endocrine: No Symptoms - Past Medical History Pertinent Past Medical History: Yes Neurological History: No Pertinent History ENT History: No Pertinent History Cardiac History: No Pertinent History Respiratory History: No Pertinent History Endocrine Medical History: No Pertinent History Musculoskeletal History: No Pertinent History GI Medical History: No Pertinent History History: No Pertinent History Psycho-Social History: Anxiety, Depression Male Reproductive Disorders: No Pertinent History - Past Surgical History Past Surgical History: No Neuro Surgical History: No Pertinent History Cardiac: No Pertinent History Respiratory: No Pertinent History Gastrointestinal: No Pertinent History Genitourinary: No Pertinent History Musculoskeletal: No Pertinent History Male Surgical History: No Pertinent History - Social History Smoking Status: Current every day smoker How long have you smoked: 20 Exposure to second hand smoke: Yes Drug Use: marijuana Patient Lives Alone: Yes ([employer], staying with friend) - Nursing Vital Signs Nursing Vital Signs: Initial Vital Signs Temperature 97.6 F 11/26/19 14:40 Pulse Rate 69 11/26/19 14:40 Respiratory Rate 18 11/26/19 14:40 Blood Pressure 140/88 11/26/19 14:40 O2 Sat by Pulse Oximetry 98 11/26/19 14:40 Pain Scale Pain Intensity 0 - Physical Exam General Appearance: no apparent distress, alert Eye Exam: bilateral eye: normal inspection, PERRL, EOMI Ear Exam: right ear: erythema (Canal), swelling (Swelling of canal), other (No mastoid tenderness. Pain is reproducible with movements of pinna.), left ear: canal normal, bilateral ear: auricle normal, TM normal Nasal Exam: normal inspection Throat Exam: normal, pharynx normal Neck Exam: normal inspection, non-tender, supple, full range of motion Cardiovascular/Respiratory Exam: normal breath sounds, regular rate/rhythm Skin Exam: normal color SpO2 Interpretation: normal SpO2: 98 O2 Delivery: Room Air - Progress Progress: unchanged Progress Note: 11/26/19 15:02 Otitis externa, will start on ofloxacin, recommended taking Tylenol ibuprofen and outpatient follow-up. Patient is offered Toradol shot in here which he refused. Counseled pt/family regarding: diagnosis, need for follow-up - Departure Departure Disposition: Home Clinical Impression: Otitis externa Qualifiers: Otitis externa type: unspecified type Chronicity: acute Laterality: right Qualified Code(s): H60.501 - Unspecified acute noninfective otitis externa, right ear Condition: Stable Critical Care Time: No Referrals: CHANTELLE BLAS [Primary Care Provider] - Follow Up with PCP/3 days Instructions: Ear Infections (Otitis Media) in Children (DC), Outer Ear Infection (DC) Additional Instructions: Use Tylenol/ibuprofen as needed for pain. Follow-up with primary care for reevaluation. Return to ER for worsening. Prescriptions: Ofloxacin Otic 5 ml [Floxin Otic 5 ML] 5 drop OT BID 7 Days #1 bottle
== END 2019-11-26 15:03 | disposition home or self-care (01) ==
LOC: ED 14:07
DX: H60.501 Unspecified acute noninfective otitis externa, right ear (principal)
CPT/HCPCS: 99283

== ENCOUNTER 2021-10-21 19:19 | Emergency (ER) | payer MEDICAID, OTHER ==
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
[2021-10-21] MEDS ORDERED: NORCO 5/325 MG PO ONE (22:51)
[2021-10-21] MEDS ORDERED: NORCO 5/325 MG ONE (22:56)
[2021-10-21 23:00] VITALS: BP 145/100; PULSE 69; O2SAT 100
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
== END 2021-10-21 23:04 | disposition home or self-care (01) ==
LOC: ED 19:19
DX: S00.01XA Abrasion of scalp, initial encounter (principal); S40.812A Abrasion of left upper arm, initial encounter; S40.811A Abrasion of right upper arm, initial encounter; S30.0XXA Contusion of lower back and pelvis, initial encounter; S30.1XXA Contusion of abdominal wall, initial encounter; V18.0XXA Pedal cycle driver injured in noncollision transport accident in nontraffic accident, initial encounter; Y93.55 Activity, bike riding; M54.50 Low back pain, unspecified; R10.9 Unspecified abdominal pain; R51.9 Headache, unspecified; Z72.0 Tobacco use
CPT/HCPCS: 70450; 74176; 99283; A9270-GY